=== PATIENT | female | born 1980 | race Caucasian/White ===

== ENCOUNTER → 2019-12-26 12:56 | Outpatient (BNVA) | payer OTHER, SELFPAY | PROVIDERS: PCP Internal Medicine; Visit Provider Advanced Practice Midwife | DX: Z76.89 Persons encountering health services in other specified circumstances (principal) ==

== ENCOUNTER 2021-02-13 09:57 | Outpatient (REF) | payer OTHER, SELFPAY ==
[2021-02-25 18:46] LABS: HPV mRNA E6/E7 rflx Not Detected (Not Detected)
== END 2021-02-13 09:58 | disposition home or self-care (01) ==
LOC: HO.LAB 09:57
PROVIDERS: Visit Provider Advanced Practice Midwife
DX: Z01.419 Encounter for gynecological examination (general) (routine) without abnormal findings (principal); Z11.51 Encounter for screening for human papillomavirus (HPV)
CPT/HCPCS: 87624; 88142

== ENCOUNTER 2022-03-16 13:16 | Outpatient (REF) | payer MEDICAID, SELFPAY ==
[2022-03-17 01:53] LABS: CT PCR NOT DETECTED (Not Detect.); NG PCR NOT DETECTED (Not Detect.)
[2022-03-17 13:46] LABS: BV Int Neg Control Negative (Negative); BV Int Pos Control Positive (Positive)
== END 2022-03-16 13:17 | disposition home or self-care (01) ==
LOC: HO.LNP 13:16
PROVIDERS: Visit Provider Advanced Practice Midwife
DX: Z01.419 Encounter for gynecological examination (general) (routine) without abnormal findings (principal)
CPT/HCPCS: 0353U; 87480; 87510; 87660

== ENCOUNTER 2023-03-19 13:04 | Outpatient (AMB) | payer OTHER, SELFPAY ==
[2023-03-19 13:06] VITALS: BP 144/82; BMI 25.2
--- NOTE | 2023-03-19 13:06 | A.OFFVIS_ITS ---
Intake Vital Signs 03/19/23 13:06 Height 5 ft 3 in Weight 142 lb BMI 25.2 BP 144/82 H Intake Visit Reasons: Annual Mid Level Java Developer Required: No Information Interpreted: non-clinical & clinical Skilled Laborer: Skilled Laborer Present (Alexyyn) Allergies guaifenesin [From ROBITUSSIN] Allergy (Unknown, Verified 03/19/23 13:07) UNKNOWN Sulfa (Sulfonamide Antibiotics) Allergy (Unknown, Verified 03/19/23 13:07) hives cephalexin [From KEFLEX] Adverse Reaction (Unknown, Verified 03/19/23 13:07) UNKNOWN Medication List - Last Reconciled 03/19/23 by Chloe Crow CNM norethindrone (contraceptive) 0.35 mg PO DAILY Is last menstrual period known: Yes Last menstrual period: 03/02/23 Post menopausal: No HPI Annual HPI Details Is here for her annual exam she has not having any problems at all she gets fairly regular periods but sometimes they can be a week or 2 late she has been on progestin only pills since childbirth and thinks she would like to stay on them she contemplates being off them but her periods are not regular enough to feel completely confident about just using fertility awareness. She is healthy she has not having any other health problems she and her and 3 children moved to [place] this year so they are gradually relocating all of their services out [place]. She did get a mammogram last year. She had a last visit with her primary care provider last year and had fairly complete screening blood work done. 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 [facility] Surgical History Hx of wisdom tooth extraction Family History Maternal Grandmother History of skin cancer High cholesterol Social History Alcohol intake: never Patient Tobacco Use Status: Never used Tobacco Sexual orientation: Straight/Heterosexual Gender identity: Female Female Reproductive History Menstrual Age of Menarche: 15 Duration of menses: 3-5 days Date of last menstrual period: 03/02/23 control method: pills Total pregnancies: 3 Full term: 3 Number of Living Children: 3 Date of last pap smear: 02/19/21 (negative) History of abnormal pap smear: No Physical Exam Vital Signs: Last Vital Signs BP 144/82 H 03/19/23 13:06 BMI result Body Mass Index 25.2 Const General: healthy appearing, comfortable, no acute distress, well developed and alert Nutritional Appearance: average body habitus Orientation/consciousness: patient oriented x3 Limitations: no limitations HEENT Head: Yes normocephalic Neck Neck: Yes normal visual inspection Chest Chest palpation & inspection: normal inspection of the chest Breast/axilla inspection: normal inspection of the breasts and normal inspection of the axillae Breast/axilla palpation: normal palpation of the breasts and normal palpation of the axillae Resp Effort & Inspection: normal respiratory effort GI Inspection: Yes normal to inspection, No Abdominal wall edema and No distended Palpation (GI): Soft to palpation and nontender Other: External exam within normal limits vagina pink and moist cervix multiparous pink moist normal appearing. Uterus small anteverted mobile firm nontender adnexa nontender good tone with Kegel. General: Yes bladder normal to palpation External Female Exam: normal external appearance and normal appearance of the urethra Speculum Exam - Vagina: normal appearance of the vagina, normal palpation and normal vaginal discharge Speculum Exam - Cervix: normal appearance of the cervix, normal palpation and nontender Bimanual exam- vagina & uterus: normal bimanual exam, normal palpation, uterine size normal, bladder normal to palpation, consistency normal, normal palpation, uterine mobility normal, uterine shape normal, No Cervical tenderness present, non-tender and no cervical motion tenderness Bimanual Exam- Adnexa, other: normal adnexae, no masses, normal and No adnexal tenderness Neuro General: patient oriented x3 Results Reviewed Results Reviewed: Name: Sonia Salamanca Age/Sex: 40/F Attending: Chloe Crow CNM : 1980 Submitted by: Chloe Crow CNM Copies to: MR #: [id number] Status: DEP REF Collected: 02/13/21 Location: .LAB Received: 02/19/21 Interpretation Satisfactory for evaluation. Mild inflammation. Negative for intraepithelial lesion or malignancy. HPV mRNA E6/E7: NOT DETECTED This assay detects E6/E7 viral messenger RNA (mRNA) from 14 high-risk HPV types (16, 18, 31, 33, 35, 39, 45, 51, 52, 56, 58, 59, 66, 68) HPV testing performed by [facility], [place], [place]. See reference laboratory portion of the EMR for entire report. Clinical Information LMP: 02/05/21 Previous PAP test: 2017, WNL Material Received ThinPrep-Cervical Electronically Signed By: JAY Gallagher (ASCP) 02/26/21 1100 The Pap Test is a screening procedure with the inherent possibility of both false negative and false positive results. Results should be interpreted in the context of historic and current clinical findings. Reliability of the Pap Test is enhanced by performing the test on a regular repetitive basis. Patient: Sonia Salamanca Age/Sex: 40/F MR#: [id number] Page 1 of 1 Assessment & Plan Assessment & Plan (1) Breast cancer screening: Comment: Will seek mammography services closer to her new home. Code(s): Z12.39 - Encounter for other screening for malignant neoplasm of breast (2) Cervical cancer screening: Comment: 02/13/21 pap= neg, neg hpv Code(s): Z12.4 - Encounter for screening for malignant neoplasm of cervix (3) control counseling: Comment: Discussed fertility awareness. Is happy on the norethindrone 0.35 mg OCPs and will stay on these. Code(s): Z30.09 - Encounter for other general counseling and advice on contraception (4) Well woman exam with routine gynecological exam: Code(s): Z01.419 - Encounter for gynecological examination (general) (routine) without abnormal findings Plan -----Discussed in this visit the following: healthy balanced diet, regular and consistent exercise, getting recommended health screens, doing the best she can for her particular health concerns, kegel exercises, pap smear screening and followup recommendations, mammography screening and SBE, normal changes in cycles in her life stage--- She has not due for a Pap smear she had absolutely no worries about STDs and no worries about any vaginal itching or burning or anything abnormal whatsoever so she did not need any other testing or infections either. I ordered a mammogram for her with a new order so that she could have it printed and take it with her so that she can decide where she wants to get her mammograms closer to her home in [place]. . ----I reviewed available options for Control Methods and their associated side effect profiles. In particular, we discussed the method most of interest to her. I refilled her prescription for norethindrone 0.35 mg p.o. 1 q.day in 3 month refills with 4 refills I sent it to her new pharmacy in [place]. We will either see her in a year or if she has relocated to healthcare provider out [place] then records can be sent there. -RTC 1 year Orders: Orders MM tomosynthesis screening BI Today Z12.31 - Encounter for screening mammogram for malignant neoplasm of breast, Z12.39 - Encounter for other screening for malignant neoplasm of breast Medications: Refilled norethindrone (contraceptive) 0.35 mg PO DAILY 84 tabs 4RF Coding Level of Care Code Est Pt Prev Care 40-64y(73538) Diagnoses Breast cancer screening Z12.39 Cervical cancer screening Z12.4 control counseling Z30.09 Well woman exam with routine gynecological exam Z01.419
== END 2023-03-19 14:20 | disposition home or self-care (01) ==
LOC: HO.HWS 13:04
PROVIDERS: Visit Provider Advanced Practice Midwife
DX: Z01.419 Encounter for gynecological examination (general) (routine) without abnormal findings (principal); Z12.39 Encounter for other screening for malignant neoplasm of breast; Z12.4 Encounter for screening for malignant neoplasm of cervix; Z30.09 Encounter for other general counseling and advice on contraception
CPT/HCPCS: 99396

== ENCOUNTER → 2023-03-19 13:04 | Outpatient (BNVA) | payer OTHER, SELFPAY | PROVIDERS: Visit Provider Advanced Practice Midwife | DX: Z01.419 Encounter for gynecological examination (general) (routine) without abnormal findings (principal) | CPT/HCPCS: 99396 ==